=== PATIENT | male | born 1970 | race Caucasian/White ===

== ENCOUNTER 2017-01-04 23:29 | Emergency (ER) | payer SELFPAY ==
--- NOTE | 2017-01-05 00:55 | ED ORDER SUMMARY ---
..... Patient: BOOM SCHAEFER OrderSheet [facility] VisitID: [id number] [address] [place] [place] [address] 46y, M Registration Date/Time: 01/04/2017 ORDER SHEET Weight: 74.8 kg (stated) Allergies: No Known Drug Allergy GENERAL ORDERS: Finger Right (ring) Urgent (23:50 01/04/2017 Meenakshi DELA CRUZ) (Ack 0:08 ALawrence ER Tech1) (0:18 Danielle) MEDICATION ORDERS: IV FLUIDS: ORDER SHEET NOTES: [Electronically signed by Rebecca Trujillo R.N. (00:55 01/05/2017)] [Electronically locked/signed by Rebecca Trujillo R.N. (00:55 01/05/2017)]
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
--- NOTE | 2017-01-05 00:55 | ED ORDER SUMMARY ---
..... Patient: BOOM SCHAEFER OrderSheet [facility] VisitID: [id number] [address] [place] [address] 46y, M Registration Date/Time: 01/04/2017 ORDER SHEET Weight: 74.8 kg (stated) Allergies: No Known Drug Allergy GENERAL ORDERS: Finger Right (ring) Urgent (23:50 01/04/2017 Meenakshi DELA CRUZ) (Ack 0:08 ALawrence ER Tech1) (0:18 Danielle) MEDICATION ORDERS: IV FLUIDS: ORDER SHEET NOTES: [Electronically signed by Rebecca Trujillo R.N. (00:55 01/05/2017)] [Electronically locked/signed by Rebecca Trujillo R.N. (00:55 01/05/2017)]
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
--- NOTE | 2017-01-05 07:52 | DIAGNOSTIC IMAGING REPORT ---
PROCEDURE: XR FINGER - RIGHT INDICATION: TRAUMA/INJURY TECHNIQUE: Three views right fourth digit COMPARISON: None. FINDINGS: Normal mineralization. No fractures. Normal osseous alignment. No suspicious soft-tissue calcification or radiodense foreign bodies. IMPRESSION: 1. Intact right fourth digit.
--- NOTE | 2017-01-05 23:17 | ED MED RECONCILIATION SUMMARY ---
Patient: BOOM SCHAEFER Medication Reconciliation Report [facility] VisitID: [id number] [address] [place] [address] 46y, M Registration Date/Time: 01/04/2017 Weight: 74.8 kg Height/Length: 70 in. BMI: 23.7 ALLERGIES: No Known Drug Allergy The patient's Home Medications are listed below: NONE. The source(s) of the original Home Medication information: Not obtained. The following Medications were given to the patient in the Emergency Department: None. The following Medications were prescribed to the patient: None.
--- NOTE | 2017-01-05 23:17 | ED MAR SUMMARY ---
..... Medication Administration Record [facility] [address] [place], [place] [id number] Patient: BOOM SCHAEFER Visit ID: [id number] 46y, M Weight: 74.8 kg Height/Length: 70 in BMI: 23.7 ALLERGIES: No Known Drug Allergy
--- NOTE | 2017-01-05 23:17 | ED DISCHARGE INSTRUCTIONS ---
Patient: BOOM SCHAEFER General Instructions [facility] VisitID: [id number] [address] [place] [address] 46y, M Registration Date/Time: 01/04/2017 ALCOHOL INTOXICATION R RING FINGER CONTUSION. INSTRUCTIONS (OK TO BOOK INTO LONGTERM IF LONGTERM CAN DO MENTAL STATUS EVALUATION EVERY 2 HOURS X 8 HOURS. CONSIDER ALCOHOLISM EVALUATION AND TREATMENT). Follow-up with: [facility], , , [address], , [place], [phone] (Electronically signed by Preston Gabriel MD 01/05/2017 23:17)
--- NOTE | 2017-01-05 23:17 | ED DISCHARGE INSTRUCTIONS ---
Patient: BOOM SCHAEFER General Instructions [facility] VisitID: [id number] [address] [place] [address] 46y, M Registration Date/Time: 01/04/2017 ALCOHOL INTOXICATION R RING FINGER CONTUSION. INSTRUCTIONS (OK TO BOOK INTO PENITENTIARY IF PENITENTIARY CAN DO MENTAL STATUS EVALUATION EVERY 2 HOURS X 8 HOURS. CONSIDER ALCOHOLISM EVALUATION AND TREATMENT). Follow-up with: [facility], , , [address], , [place], [phone] (Electronically signed by Preston Gabriel MD 01/05/2017 23:17)
--- NOTE | 2017-01-05 23:17 | ED MAR SUMMARY ---
..... Medication Administration Record [facility] [address] [place], [place] [id number] Patient: BOOM SCHAEFER Visit ID: [id number] 46y, M Weight: 74.8 kg Height/Length: 70 in BMI: 23.7 ALLERGIES: No Known Drug Allergy
--- NOTE | 2017-01-05 23:17 | ED MED RECONCILIATION SUMMARY ---
Patient: BOOM SCHAEFER Medication Reconciliation Report [facility] VisitID: [id number] [address] [place] [address] 46y, M Registration Date/Time: 01/04/2017 Weight: 74.8 kg Height/Length: 70 in. BMI: 23.7 ALLERGIES: No Known Drug Allergy The patient's Home Medications are listed below: NONE. The source(s) of the original Home Medication information: Not obtained. The following Medications were given to the patient in the Emergency Department: None. The following Medications were prescribed to the patient: None.
== END 2017-01-05 00:53 ==
LOC: ED SRH 23:29
DX: F10.129 Alcohol abuse with intoxication, unspecified (principal); Y90.1 Blood alcohol level of 20-39 mg/100 ml; S60.031A Contusion of right middle finger without damage to nail, initial encounter; W22.8XXA Striking against or struck by other objects, initial encounter; Y93.9 Activity, unspecified; Y92.9 Unspecified place or not applicable; Y99.9 Unspecified external cause status; Z02.89 Encounter for other administrative examinations